=== PATIENT | female | born 1930 | race Caucasian/White ===

== ENCOUNTER 2018-09-04 02:44 | Emergency (ER) ==
[2018-09-04 02:51] VITALS: BP 142/54; TEMP 96.8; BMI 23.6
--- NOTE | 2018-09-04 03:54 | CT ---
EXAM: CT abdomen pelvis without intravenous contrast 09/04/2018. Sagittal and coronal reformatted i mages obtained HISTORY: Vomiting COMPARISON: 05/12/2016 FINDINGS: Bibasilar atelectasis. Low density lesion within the left lobe of liver shows peripheral calcification. This is unchanged as compared to 2016 consistent with benign etiology. The bladder i s distended with multiple gallstones. The adrenal glands and kidneys show no acute abnormality. No urinary obstruction. The spleen and pancreas show no gross abnormality. Small hiatal hernia. Abnormal fluid distension of distal small bowel. On axial series image 79 right lower quadrant small bowel measures 4 cm AP diameter. Partial decompression of the terminal ileum. This could represent ileus versus distal obstruction. This most likely represents early or partial distal small bowel ob struction. Limited evaluation due to the lack of intravenous as well as the lack of oral contrast. The appendix is not definitively identified. Unremarkable urinary bladder. No free air or free flui d. Benign calcification of the uterus likely due to fibroid. Chronic degenerative findings of the spine. No acute osseous abnormality. IMPRESSION: 1. Abnormal fluid distension of distal small bowel up to approximately 4 cm diameter. Differential considerations include ileus and distal small bowel obstruction. Partial decompression of distal sma ll bowel. Transition in the right lower quadrant. This likely represents early or partial distal sm all bowel obstruction. 2. The current study is limited due to lack of intravenous as well as the lack of oral contrast. Fu rther workup should be obtained as clinically appropriate. 2. Descending gallbladder with multiple gallstones. 3. No urinary obstruction. Critical FINDINGS: I personally discussed these findings with Dr. Kearney, 09/04/2018, 3:48 a.m.
[2018-09-04] MEDS ORDERED: SODIUM CHLORIDE 1,000 ML IV STA ×2 (04:14→05:18)
[2018-09-04] MEDS ORDERED: ZOFRAN 4 MG/2 ML IVP STA (04:15)
--- NOTE | 2018-09-04 04:18 | ED.PDOC ---
General ED Provider: Dr. GUSTAVO CHAMBERS-ER Chief Complaint: Palpitations Stated Complaint: my heart was racing--now i am nauseated Time Seen by Physician: 03:00 Mode of Arrival: Ambulance Information Source: Patient, Family, EMT Exam Limitations: No limitations Primary Care Provider: KISHA TAYLOR Nursing and Triage Documentation Reviewed and Agree: Yes Does patient meet sepsis criteria?: No System Inflammatory Response Syndrome: Not Applicable Sepsis Protocol: For patient's 13 years and over: Temp is 96.8 and below OR 101 and greater Pulse >90 BPM Resp >20/minute Acutely Altered Mental Status Are patient's symptoms suggestive of a new infection, such as: -Pneumonia -Skin, Soft Tissue -Endocarditis -UTI -Bone, Joint Infection -Implantable Device -Acute Abdominal Infection -Wound Infection -Meningitis -Blood Stream Catheter Infection -Unknown GI Complaint Exam - Vomiting/Diarrhea Complaint/Exam Onset/Duration: one hour Symptoms Are: Still present Initial Severity: Mild Current Severity: Mild Character of Vomiting: Reports: Non-bilious Aggravating: Reports: Food Associated Signs and Symptoms: Reports: Cramping Recent Positive Test: No Use of Oral Contraceptives: No Use of Depoprovera: No Compliant With Contraceptive Use: No Non-GI Risk Factors: Reports: None Surgical Obstruction Risk Factors: Reports: None Abdominal Findings: Present: None Kussmaul Respirations Present: No Differential Diagnoses: Bowel Obstruction, Cholelithiasis, Dehydration Review of Systems - Review Of Systems Constitutional: Reports: No symptoms Eyes: Reports: No symptoms Ears, Nose, Mouth, Throat: Reports: No symptoms Respiratory: Reports: No symptoms Cardiac: Reports: No symptoms GI: Reports: Abdominal pain, Nausea : Reports: No symptoms Musculoskeletal: Reports: No symptoms Skin: Reports: No symptoms Neurological: Reports: No symptoms Endocrine: Reports: No symptoms Hematologic/Lymphatic: Reports: No symptoms All Other Systems: Reviewed and Negative Past Medical History - Past Medical History Previously Healthy: Yes Endocrine: Reports: None Cardiovascular: Reports: None Respiratory: Reports: None Hematological: Reports: None Gastrointestinal: Reports: None Genitourinary: Reports: None Neuro/Psych: Reports: None Musculoskeletal: Reports: None Cancer: Reports: None Last Menstrual Period: UNKNOWN - Surgical History General Surgical History: Reports: None - Family History Family History: Reports: None - Social History Smoking Status: Never smoker Hx Substance Use: No Alcohol Screening: None - Immunizations Tetanus Shot up to Date: No Physical Exam - Physical Exam Appearance: Well-appearing, No pain distress, Well-nourished Eyes: JOHANNE, EOMI, Conjunctiva clear ENT: Ears normal, Nose normal, Oropharynx normal Neck: Supple Respiratory: Airway patent, Breath sounds clear, Breath sounds equal, Respirations nonlabored Cardiovascular: RRR, Pulses normal, No rub, No murmur GI/: Soft, Nontender, No masses, Bowel sounds normal, No Organomegaly Musculoskeletal: Normal strength, ROM intact, No edema, No calf tenderness Skin: Warm, Dry, Normal color Neurological: Sensation intact, Motor intact, Reflexes intact, Cranial nerves intact, Alert, Oriented Psychiatric: Affect appropriate Interpretation - Radiology Interpretation Radiology Interpretation By: Radiologist Radiology Results: Positive Exam Interpreted: CT Scan - EKG Interpretation Time of EKG #1: 04:18 Rate: Normal Rhythm: Sinus Ectopy: None [place]: NL ST Segment: Normal Interpretation: nsr Physician Notification - Case Discussed Physician Notified: dr taylor(dr cherry called back from transfer center) Time of Notification: 04:38 Critical Care Note - Critical Care Note Total Time (mins): 0 Course - Course Hematology/Chemistry: 09/04/18 03:15 09/04/18 03:15 Orders, Labs, Meds: Lab Review 09/04/18 09/04/18 09/04/18 03:15 03:15 03:15 WBC 13.16 H RBC 4.53 Hgb 13.0 Hct 39.9 MCV 88.1 MCH 28.7 MCHC 32.6 RDW Coeff of [place] 13.4 Plt Count 221 Immature Gran % (Auto) 0.2 Neut % (Auto) 90.8 Lymph % (Auto) 4.0 L [place] % (Auto) 4.6 Eos % (Auto) 0.1 Baso % (Auto) 0.3 Immature Gran # (Auto) 0.0 Neut # (Auto) 12.0 H Lymph # (Auto) 0.5 L [place] # (Auto) 0.6 Eos # (Auto) 0.0 Baso # (Auto) 0.0 Sodium 133.4 L Potassium 3.82 Chloride 98.4 Carbon Dioxide 31.6 H Anion Gap 7.22 BUN 12.3 Creatinine 0.50 L Estimated GFR (MDRD) 116.00 BUN/Creatinine Ratio 24.60 Glucose 157.4 H Calcium 9.08 Total Bilirubin 0.43 AST 31.1 ALT 16.0 Alkaline Phosphatase 76.0 Total Creatine Kinase 51.5 Troponin I < 0.012 Total Protein 6.44 Albumin 3.67 Globulin 2.77 Albumin/Globulin Ratio 1.32 Amylase 58.7 Lipase 26.6 TSH 4.040 Free T4 1.05 Urine Color Urine Clarity Urine pH Ur Specific [place] Urine Protein Urine Glucose (UA) Urine Ketones Urine Blood Urine Nitrite Urine Bilirubin Urine Urobilinogen Ur Leukocyte Esterase Urine Microscopic RBC Ur Squamous Epith Cells Influ A Molecular Assay Influ B Molecular Assay 09/04/18 09/04/18 03:15 03:40 WBC RBC Hgb Hct MCV MCH MCHC RDW Coeff of [place] Plt Count Immature Gran % (Auto) Neut % (Auto) Lymph % (Auto) [place] % (Auto) Eos % (Auto) Baso % (Auto) Immature Gran # (Auto) Neut # (Auto) Lymph # (Auto) [place] # (Auto) Eos # (Auto) Baso # (Auto) Sodium Potassium Chloride Carbon Dioxide Anion Gap BUN Creatinine Estimated GFR (MDRD) BUN/Creatinine Ratio Glucose Calcium Total Bilirubin AST ALT Alkaline Phosphatase Total Creatine Kinase Troponin I Total Protein Albumin Globulin Albumin/Globulin Ratio Amylase Lipase TSH Free T4 Urine Color Yellow Urine Clarity Clear Urine pH 7.0 Ur Specific [place] 1.015 Urine Protein 1+ Urine Glucose (UA) Negative Urine Ketones Negative Urine Blood 2+ Urine Nitrite Negative Urine Bilirubin Negative Urine Urobilinogen 0.2 Ur Leukocyte Esterase Negative Urine Microscopic RBC 5-10 Ur Squamous Epith Cells 0-2 Influ A Molecular Assay Negative by naat Influ B Molecular Assay Negative by naat Orders Category Date Time Status EKG-(ED ONLY) Stat CARDIO 09/04/18 03:08 Ordered ED MOVING PICTURE PRODUCER APPLIED .ONCE EMERGENCY 09/04/18 03:08 Active AMYLASE Stat LAB 09/04/18 03:15 Completed CBC W/ AUTO DIFF Stat LAB 09/04/18 03:15 Completed COMPREHENSIVE METABOLIC PANEL Stat LAB 09/04/18 03:15 Completed CREATINE KINASE Stat LAB 09/04/18 03:15 Completed FLU A/B MOLECULAR Stat LAB 09/04/18 03:15 Completed FREE T4 (FREE THYROXINE) Stat LAB 09/04/18 03:15 Completed LIPASE Stat LAB 09/04/18 03:15 Completed MOLECULAR GROUP A STREP Stat LAB 09/04/18 03:15 Completed TROPONIN I Stat LAB 09/04/18 03:15 Completed TSH [THYROID STIMULATING HORMONE] Stat LAB 09/04/18 03:15 Completed URINALYSIS C & S IF INDICATED Stat LAB 09/04/18 03:40 Completed Ondansetron HCl/Pf [Zofran 4 mg/2 ml] MEDS 09/04/18 04:15 Discontinued 4 mg IVP ONCE STA Sodium Chloride 0.9% [Sodium Chloride] 1,000 ml MEDS 09/04/18 04:[address] ABDOMEN/PELVIS WO CONTRAST Stat RADS 09/04/18 03:09 Completed Medications Generic Name Dose Route Start Last Admin Trade Name Freq PRN Reason Stop Dose Admin Sodium Chloride 1,000 mls @ 1,000 mls/hr 09/04/18 04:14 09/04/18 04:19 Sodium Chloride IV 09/04/18 05:13 1,000 mls/hr BOLUS STA Administration Discontinued Medications Generic Name Dose Route Start Last Admin Trade Name Freq PRN Reason Stop Dose Admin Ondansetron HCl 4 mg 09/04/18 04:15 09/04/18 04:21 Zofran 4 Mg/2 Ml IVP 09/04/18 04:16 4 mg ONCE STA Administration Vital Signs: Temp Pulse Resp BP Pulse Ox 09/04/18 02:46 96.8 F L 78 20 142/54 H 95 Departure - Departure Time of Disposition: 04:18 Disposition: HOME SELF-CARE Discharge Problem: Partial small bowel obstruction Instructions: Bowel Obstruction (ED) Condition: Fair Pt referred to PMD for follow-up: Yes IPMP verified?: No Allergies/Adverse Reactions: Allergies No Known Allergies Allergy (Verified 09/04/18 02:51) Home Medications: Ambulatory Orders Enalapril Maleate [Vasotec] 10 mg PO DAILY #10 tablet 10/19/15 Hydrochlorothiazide 25 mg PO DAILY 05/12/16 Transfer Form Completed: Yes Disposition Discussed With: Patient, Family
[2018-09-04] MEDS ORDERED: LIDOCAINE JELLY 2% MUCOUSMEMB STA (04:45)
== END 2018-09-04 05:50 | disposition home or self-care (01) ==
LOC: ED 02:44
DX: K56.600 Partial intestinal obstruction, unspecified as to cause (principal); R00.2 Palpitations; R11.0 Nausea; Z87.19 Personal history of other diseases of the digestive system
CPT/HCPCS: 36415; 80053; 81001; 82150; 82550; 83690; 84439; 84443; 84484; 85025; 87502; 87651; 93005; 93010; 96361; 96374; 99285